=== PATIENT | female | born 1960 | race Two or more races ===

== ENCOUNTER 2018-06-23 13:20 | Emergency (ER) | payer OTHER ==
[~2018-06-23] VITALS: Ht 167.6 cm; Wt 61.2 kg
[2018-06-23 19:30] VITALS: BP 146/73
== END 2018-06-23 21:22 | disposition home or self-care (01) ==
LOC: EEVIPCON 13:26 → ER 13:26
DX: R51 Headache (principal); H53.8 Other visual disturbances; J44.9 Chronic obstructive pulmonary disease, unspecified; Z87.891 Personal history of nicotine dependence
CPT/HCPCS: 70450